=== PATIENT | male | born 1995 | race Asian ===

== ENCOUNTER 2023-09-12 19:58 | Emergency (ER) | payer OTHER, SELFPAY ==
[2023-09-12 20:00] VITALS: BP 131/87; BMI 25.1
--- NOTE | 2023-09-12 23:23 | ED.GENMED ---
History of Present Illness
General
Chief Complaint: Skin Problem
Source: patient
Exam Limitations: none
Time Seen by Provider: 09/12/23 23:04
Travel History
Have you had any contact with someone who has COVID-19?: No
Do you have any symptoms of coronavirus? Fever > 100 degrees, chills, cough, shortness of breath, sore throat, loss of taste or smell, muscle aches, or headache?: No
History of Present Illness
History of Present Illness:
27-year-old male presents with diffuse pruritus starting 2 days ago. He was cleaning out his air conditioner and it was librado and he thinks he may have reacted to something. He denies sore throat cough or shortness of breath. He tried
triamcinolone without relief. It was worse after a shower. He notes red itchy spots over his arms and legs head and neck and trunk. He has not slept in anywhere different. No known sick contacts. No fever. No other complaints
Past History
Past History
ED Past Medical History: GERD
ED Past Surgical History: Other (Nasal Surgery)
Social History
Tobacco: Non-smoker
Alcohol: None
Personal:
Living: with family
Phy Exam
Physical Exam
Physical Exam:
General: Well-appearing male no acute respiratory distress
HEENT: Normocephalic atraumatic
Heart: Regular rate and rhythm no murmurs
Lungs: Clear no wheeze or rales
Skin: Pruritic rash over the anterior aspect of the rodriguez arms and neck. Is not fluctuant or indurated. No interdigital webspace burrowing.
Extremities: No cyanosis
Course
Orders/Labs/Results
Orders:
Orders
09/12/23 23:14
Diphenhydramine [Benadryl] 25 mg PO NOW STA
09/12/23 23:15
Prednisone [Deltasone] 50 mg PO NOW STA
Vital Signs
Initial and Last Documented VS:
Initial Vital Signs
Temp Pulse Resp BP Pulse Ox
98.1 F 75 16 131/87 100
09/12/23 20:00 09/12/23 20:00 09/12/23 20:00 09/12/23 20:00 09/12/23 20:00
Last Documented Vital Signs
Temp Pulse Resp BP Pulse Ox
98.1 F 75 16 131/87 100
09/12/23 20:00 09/12/23 20:00 09/12/23 20:00 09/12/23 20:00 09/12/23 20:00
MDM/Problems Addressed
Differential Diagnosis Includes:
Rash. Likely adverse reaction. Do not suspect bacterial infection. Question possible allergy mediated. Will recommend Benadryl and a short course of steroids. Recommend follow-up family doctor.
*Critical Care Note
Total Time (30-74mins, 75-104mins- exclusive of procedures): Not Applicable
ED Attending Note
-
Portions of this chart may have been created with voice recognition software.� Occasional wrong word or��sound alike� substitutions may have occurred due to the inherent limitations of voice recognition software.
Discharge Plan
Departure
Patient Disposition: Home (Routine Discharge)
Date of Disposition: 09/12/23
Time of Disposition: 23:25
Patient with high blood pressure during this ER visit?: No
Discharge Problem:
Rash
Instructions: Skin Rash (DC)
Prescriptions:
New
prednisone 20 mg tablet
40 mg PO DAILY 5 Days Qty: 10 0RF
No Action
methylprednisolone [Medrol (Jah)] 4 mg tablets,dose pack
See Rx Instructions .ROUTE .COMPLEX Qty: 21 0RF
Rx Instructions:
orally per package directions
lidocaine HCl [Lidocaine Viscous] 2 % solution
1 applic mucous membrane Q6H PRN (Reason: pain) Qty: 600 0RF
omeprazole 40 mg capsule,delayed release(DR/EC)
40 mg PO DAILY Qty: 30 0RF
diclofenac potassium 50 mg tablet
50 mg PO BID Qty: 20 0RF
Activity Restrictions/Additional Instructions:
Continue with Benadryl every 4 hours if needed. Use prednisone as directed. Return if worse otherwise follow-up with family doctor.
Interventions
Interventions:
*Risk Screen - Suicide Last Done: 09/12/23 20:00
*General Assessment Last Done: 09/12/23 20:00
*Neglect/Abuse Screening Last Done: 09/12/23 20:00
*ED COVID-19 Vaccine History Last Done: 09/12/23 20:00
Discharge Date and Time
Print Language: ROMANIAN
[2023-09-12] MEDS: BENADRYL 25 MG PO (23:26)
[2023-09-12] MEDS: DELTASONE 50 MG PO (23:26)
[2023-09-12 23:29] VITALS: BP 129/82
== END 2023-09-12 23:35 | disposition home or self-care (01) ==
LOC: EMR 19:58
PROVIDERS: EMERGENCY PHYSICIAN Emergency Medicine
DX: R21 Rash and other nonspecific skin eruption (principal); K21.9 Gastro-esophageal reflux disease without esophagitis
CPT/HCPCS: 99282